=== PATIENT | female | born 1940 | race Caucasian/White ===

== ENCOUNTER → 2016-11-09 | Outpatient (CLI) | payer OTHER ==
[~2016-11-09] MED LIST: APIX5TAB PO; ASCO10004 PO; ASPI-496 PO; CHOL200024 PO; CYAN1TAB29 PO; FENO48TA5 PO; MOXI3DRO2 LEFTEYE; MULT-516 PO; OMEP20TA62 PO; POTASSIUM CHLORIDE PO; PRED1DRO LEFTEYE; PROBIOTIC PO; SIMV40TA3 PO; TIMO1DRO2 EACHEYE; TRAV5DRO RIGHTEYE
[2016-11-09 11:44] LABS: BLOOD UREA NITROGEN 30 mg/dL (7-18)
[2016-11-09 11:45] LABS: ASPARTATE AMINO TRANSFERASE 27 U/L (15-37)
== END | disposition home or self-care (01) ==
LOC: STAR 10:06
PROVIDERS: ATTEND Specialist
DX: Z01.810 Encounter for preprocedural cardiovascular examination (principal)
CPT/HCPCS: 36415; 80053; 93005